=== PATIENT | male | born 1975 | race Caucasian/White ===

== ENCOUNTER 2017-04-30 03:49 | Inpatient (IN) | payer MEDICAID ==
[2017-04-30] MEDS: ASPIRIN 325 MG TAB PO (04:36)
[2017-04-30] MEDS: SOD CHLORIDE 0.9% 1,000 ML IV (04:36)
[2017-04-30] MEDS: KETOROLAC 30 MG INJ IV (04:36)
[2017-04-30 04:46] LABS: ADD MAN DIFF? NO
[2017-04-30 04:50] LABS: WHITE BLOOD COUNT 14.1 10^3/ul (4.8-10.8)
[2017-04-30 04:50] LABS: BASOPHIL # 0.1 10^3/ul (0.0-0.1); BASOPHILS % 0.7 % (0.0-2.0); EOSINOPHILS # 0.9 10^3/ul (0.0-0.5); EOSINOPHILS % 6.7 % (0.0-7.0); HEMATOCRIT 47.2 % (42.0-52.0); HEMOGLOBIN 16.2 g/dl (14.0-18.0); LYMPHOCYTES # 1.3 10^3/ul (0.8-2.9); LYMPHOCYTES % 9.5 % (15.0-51.0); MEAN CORPUSCULAR HGB CONC 34.3 g/dl (32.0-37.0); MEAN CORPUSCULAR VOLUME 93.1 fl (82.0-101.0); MEAN PLATELET VOLUME 10.2 fl (7.4-10.4); MONOCYTE # 0.8 10^3/ul (0.3-0.9); MONOCYTES % 5.3 % (0.0-11.0); NEUTROPHIL # 10.9 10^3/ul (1.6-7.5); NEUTROPHILS % 77.2 % (39.0-77.0); PLATELET COUNT 216 10^3/UL (140-415); RED BLOOD COUNT 5.07 10^6/ul (4.70-6.10); RED CELL DISTRIBUTION WIDTH 12.4 % (11.5-14.5)
[2017-04-30 05:09] LABS: ALANINE AMINOTRANSFERASE 40 IU/L (13-69); ALBUMIN 4.5 g/dl (3.3-4.9); ALBUMIN/GLOBULIN RATIO 1.36; ALKALINE PHOSPHATASE 100 IU/L (42-121); ANION GAP 18 (8-16); ASPARTATE AMINO TRANSFERASE 24 IU/L (15-46); BILIRUBIN,INDIRECT 0.4 mg/dl (0-1.1); BILIRUBIN,TOTAL 0.4 mg/dl (0.2-1.3); BLOOD UREA NITROGEN 10 mg/dl (7-20); CALCIUM 9.1 mg/dl (8.4-10.2); CARBON DIOXIDE 30 mmol/L (21-31); CHLORIDE 106 mmol/L (97-110); CREATININE 0.77 mg/dl (0.61-1.24); GLUCOSE 115 mg/dl (70-220); POTASSIUM 3.8 mmol/L (3.5-5.1); SODIUM 150 mmol/L (135-144); TOTAL PROTEIN 7.8 g/dl (6.1-8.1)
[2017-04-30] MEDS: ALBUTEROL 0.083% (NEB) 2.5 MG/3 ML AMP HHN (05:17)
[2017-04-30] MEDS: IPRATROPIUM (NEB) 0.5 MG/2.5 ML AMP HHN (05:17)
[2017-04-30 05:21] LABS: B-TYPE NATRIURETIC PEPTIDE 11 PG/ML (0-125)
[2017-04-30 05:27] LABS: TROPONIN-I < 0.012 ng/ml (0.00-0.12)
[2017-04-30] MEDS: SODIUM CHLORIDE 0.9% 1L BAG IV* (05:31)
[2017-04-30] MEDS: CEFEPIME 2GM/50 ML (PMX) 50 ML IVPB (06:09)
[2017-04-30 06:26] LABS: LACTIC ACID 2.2 mmol/L (0.5-2.0)
[2017-04-30 06:45] LABS: ADD UMIC YES; UR ASCORBIC ACID NEGATIVE (NEGATIVE); UR BILIRUBIN (Dip) NEGATIVE (NEGATIVE); UR BLOOD (Dip) 1+ mg/dL (NEGATIVE); UR CLARITY CLEAR (CLEAR); UR COLOR STRAW (YELLOW); UR GLUCOSE (Dip) NEGATIVE (NEGATIVE); UR KETONES (Dip) NEGATIVE (NEGATIVE); UR LEUKOCYTE ESTERASE (Dip) NEGATIVE Leu/ul (NEGATIVE); UR NITRITE (Dip) NEGATIVE (NEGATIVE); UR RBC 2 /HPF (0-5); UR SPECIFIC GRAVITY (Dip) 1.011 (1.003-1.030); UR TOTAL PROTEIN (Dip) NEGATIVE (NEGATIVE); UR UROBILINOGEN (Dip) NEGATIVE (NEGATIVE); UR WBC 0 /HPF (0-5)
[2017-04-30 06:57] LABS: AADO2 Arterial 176.1 mmHg (7.0-24.0); Allen Test ACCEPTAB; Arterial Base Excess -0.5 mmol/L (-3.0-3); Arterial Blood Gas Oxygen Sat 98.2 mmHG (95.0-98.0); Arterial COHb 0.1 % (0.0-3.0); Arterial Fraction of Oxyhgb 97.8 % (93.0-99.0); Arterial HCO3 26.2 mmol/L (22.0-26.0); Arterial MetHb 0.3 % (0.0-1.5); Arterial Total Hemglobin 16.5 g/dl (12.0-18.0); Arterial pCO2 50.3 mmhg (35-45); Blood Gas IEPAP 15/5; Blood Gas PS 10; MODE MASK - BIPAP; Site Left Radial
[2017-04-30] MEDS ORDERED: NACL 0.9% 3 ML SYG IV (07:30)
[2017-04-30] MEDS ORDERED: ACETAMINOPHEN 325 MG TAB PO (07:30)
[2017-04-30] MEDS: IOHEXOL 300MG/ML 150 ML BTL (07:57)
[2017-04-30] MEDS: IOHEXOL 100 ML (08:26)
[2017-04-30] MEDS: SOD CHLORIDE 0.9% 100 ML (08:26)
[2017-04-30] MEDS: IOHEXOL 350MG/ML 50 ML BTL (08:27)
[2017-04-30] MEDS: ENOXAPARIN 40 MG/0.4 ML SYG SC (08:43)
[2017-04-30] MEDS: METHYLPREDNISOLONE 125 MG INJ IV ×5 (08:43→23:19)
[2017-04-30] MEDS: AZITHROMYCIN 500MG/NS (PMX) 250 ML IVPB (08:43)
[2017-04-30] MEDS ORDERED: CEFTRIAXONE 1 GM/50 ML (PMX) 50 ML IVPB (09:00)
[2017-04-30] MEDS: morphine 2 MG INJ IV ×3 (09:05→23:19)
[2017-04-30 09:30] LABS: LACTIC ACID 1.8 mmol/L (0.5-2.0)
[2017-04-30] MEDS: CEFTRIAXONE 2 GM/NS 50 ML IVPB (10:52)
[2017-04-30 11:07] LABS: CREATINE KINASE 189 IU/L (23-200)
[2017-04-30 11:08] LABS: LACTIC ACID 1.3 mmol/L (0.5-2.0)
[2017-04-30 11:13] LABS: TROPONIN-I < 0.012 ng/ml (0.00-0.12)
[2017-04-30] MEDS: ONDANSETRON 4 MG INJ IV (18:07)
[2017-04-30 19:13] LABS: CREATINE KINASE 199 IU/L (23-200)
[2017-04-30 19:23] LABS: CK INDEX 1.6
[2017-04-30 19:25] LABS: CK-MB 3.15 ng/ml (0.0-2.4); TROPONIN-I < 0.012 ng/ml (0.00-0.12)
[2017-05-01] MEDS: LEVALBUTEROL (NEB) 0.63 MG/3 ML AMP HHN ×2 (04:18→22:07)
[2017-05-01] MEDS: IPRATROPIUM (NEB) 0.5 MG/2.5 ML AMP HHN ×2 (04:18→22:07)
[2017-05-01] MEDS: METHYLPREDNISOLONE 125 MG INJ IV ×4 (06:07→23:29)
[2017-05-01] MEDS: morphine 2 MG INJ IV (06:07)
[2017-05-01 07:45] LABS: ADD MAN DIFF? NO
[2017-05-01 08:20] LABS: BASOPHILS % 0.1 % (0.0-2.0); HEMATOCRIT 46.2 % (42.0-52.0); HEMOGLOBIN 15.7 g/dl (14.0-18.0); LYMPHOCYTES # 1.2 10^3/ul (0.8-2.9); LYMPHOCYTES % 8.1 % (15.0-51.0); MEAN CORPUSCULAR HEMOGLOBIN 32.3 pg (29.0-33.0); MEAN CORPUSCULAR VOLUME 95.1 fl (82.0-101.0); MEAN PLATELET VOLUME 10.6 fl (7.4-10.4); MONOCYTE # 0.4 10^3/ul (0.3-0.9); MONOCYTES % 2.6 % (0.0-11.0); NEUTROPHIL # 12.9 10^3/ul (1.6-7.5); NEUTROPHILS % 88.7 % (39.0-77.0); PLATELET COUNT 209 10^3/UL (140-415); RED BLOOD COUNT 4.86 10^6/ul (4.70-6.10); RED CELL DISTRIBUTION WIDTH 12.6 % (11.5-14.5)
[2017-05-01 08:20] LABS: WHITE BLOOD COUNT 14.5 10^3/ul (4.8-10.8)
[2017-05-01 08:23] LABS: ALANINE AMINOTRANSFERASE 37 IU/L (13-69); ALBUMIN 4.7 g/dl (3.3-4.9); ALBUMIN/GLOBULIN RATIO 1.46; ALKALINE PHOSPHATASE 82 IU/L (42-121); ANION GAP 19 (8-16); ASPARTATE AMINO TRANSFERASE 34 IU/L (15-46); BILIRUBIN,INDIRECT 0.3 mg/dl (0-1.1); BILIRUBIN,TOTAL 0.3 mg/dl (0.2-1.3); BLOOD UREA NITROGEN 18 mg/dl (7-20); CALCIUM 9.2 mg/dl (8.4-10.2); CARBON DIOXIDE 31 mmol/L (21-31); CHLORIDE 102 mmol/L (97-110); CREATININE 0.77 mg/dl (0.61-1.24); GLUCOSE 135 mg/dl (70-220); MAGNESIUM 2.3 mg/dl (1.7-2.5); SODIUM 147 mmol/L (135-144); TOTAL PROTEIN 7.9 g/dl (6.1-8.1)
[2017-05-01] MEDS: ENOXAPARIN 40 MG/0.4 ML SYG SC (09:37)
[2017-05-01] MEDS: CEFTRIAXONE 2 GM/NS 50 ML IVPB (11:44)
[2017-05-01] MEDS: AZITHROMYCIN 500MG/NS (PMX) 250 ML IVPB (11:45)
[2017-05-02] MEDS: METHYLPREDNISOLONE 125 MG INJ IV (05:29)
[2017-05-02 08:00] LABS: ADD MAN DIFF? NO
[2017-05-02 08:07] LABS: WHITE BLOOD COUNT 19.1 10^3/ul (4.8-10.8)
[2017-05-02 08:07] LABS: BASOPHILS % 0.1 % (0.0-2.0); HEMATOCRIT 46.1 % (42.0-52.0); HEMOGLOBIN 15.6 g/dl (14.0-18.0); LYMPHOCYTES # 1.2 10^3/ul (0.8-2.9); LYMPHOCYTES % 6.1 % (15.0-51.0); MEAN CORPUSCULAR HEMOGLOBIN 32.2 pg (29.0-33.0); MEAN CORPUSCULAR HGB CONC 33.8 g/dl (32.0-37.0); MEAN CORPUSCULAR VOLUME 95.1 fl (82.0-101.0); MEAN PLATELET VOLUME 10.6 fl (7.4-10.4); MONOCYTE # 0.5 10^3/ul (0.3-0.9); MONOCYTES % 2.7 % (0.0-11.0); NEUTROPHIL # 17.3 10^3/ul (1.6-7.5); NEUTROPHILS % 90.4 % (39.0-77.0); PLATELET COUNT 251 10^3/UL (140-415); RED BLOOD COUNT 4.85 10^6/ul (4.70-6.10); RED CELL DISTRIBUTION WIDTH 12.3 % (11.5-14.5)
[2017-05-02 08:30] LABS: ANION GAP 18 (8-16); BLOOD UREA NITROGEN 23 mg/dl (7-20); CALCIUM 9.2 mg/dl (8.4-10.2); CARBON DIOXIDE 28 mmol/L (21-31); CHLORIDE 104 mmol/L (97-110); CREATININE 0.76 mg/dl (0.61-1.24); GLUCOSE 127 mg/dl (70-220); MAGNESIUM 2.7 mg/dl (1.7-2.5); POTASSIUM 4.6 mmol/L (3.5-5.1); SODIUM 145 mmol/L (135-144)
[2017-05-02] MEDS: AZITHROMYCIN 500MG/NS (PMX) 250 ML IVPB (08:49)
[2017-05-02] MEDS: ENOXAPARIN 40 MG/0.4 ML SYG SC (08:49)
[2017-05-02] MEDS: CEFTRIAXONE 2 GM/NS 50 ML IVPB (08:49)
[2017-05-02] MEDS: predniSONE 20 MG TAB PO (12:06)
[2017-05-02] MEDS: LEVALBUTEROL (NEB) 0.63 MG/3 ML AMP HHN ×2 (13:21→22:44)
[2017-05-03 07:25] LABS: ADD MAN DIFF? NO
[2017-05-03] MEDS: LEVALBUTEROL (NEB) 0.63 MG/3 ML AMP HHN (07:28)
[2017-05-03] MEDS: IPRATROPIUM (NEB) 0.5 MG/2.5 ML AMP HHN (07:28)
[2017-05-03 07:32] LABS: BASOPHILS % 0.2 % (0.0-2.0); EOSINOPHILS # 0.1 10^3/ul (0.0-0.5); EOSINOPHILS % 0.5 % (0.0-7.0); HEMATOCRIT 43.3 % (42.0-52.0); HEMOGLOBIN 14.6 g/dl (14.0-18.0); LYMPHOCYTES # 3.1 10^3/ul (0.8-2.9); LYMPHOCYTES % 23.1 % (15.0-51.0); MEAN CORPUSCULAR HGB CONC 33.7 g/dl (32.0-37.0); MEAN PLATELET VOLUME 10.3 fl (7.4-10.4); MONOCYTE # 1.1 10^3/ul (0.3-0.9); MONOCYTES % 8.6 % (0.0-11.0); NEUTROPHIL # 8.9 10^3/ul (1.6-7.5); NEUTROPHILS % 67.1 % (39.0-77.0); PLATELET COUNT 231 10^3/UL (140-415); RED BLOOD COUNT 4.56 10^6/ul (4.70-6.10); RED CELL DISTRIBUTION WIDTH 12.7 % (11.5-14.5)
[2017-05-03 07:32] LABS: WHITE BLOOD COUNT 13.2 10^3/ul (4.8-10.8)
[2017-05-03 07:54] LABS: ANION GAP 18 (8-16); BLOOD UREA NITROGEN 20 mg/dl (7-20); CALCIUM 8.8 mg/dl (8.4-10.2); CARBON DIOXIDE 28 mmol/L (21-31); CHLORIDE 104 mmol/L (97-110); CREATININE 0.84 mg/dl (0.61-1.24); GLUCOSE 87 mg/dl (70-220); POTASSIUM 3.7 mmol/L (3.5-5.1); SODIUM 146 mmol/L (135-144)
[2017-05-03] MEDS: ENOXAPARIN 40 MG/0.4 ML SYG SC (08:34)
[2017-05-03] MEDS: CEFTRIAXONE 2 GM/NS 50 ML IVPB (08:35)
[2017-05-03] MEDS: AZITHROMYCIN 500MG/NS (PMX) 250 ML IVPB (08:35)
[2017-05-03] MEDS: predniSONE 20 MG TAB PO (08:35)
[2017-05-03] MEDS: predniSONE 10 MG TAB PO (10:44)
== END 2017-05-03 18:00 | disposition home or self-care (01) | DRG 190 ==
LOC: E/R 03:49 → MS4 06:17
PROC: 5A09357 Assistance with Respiratory Ventilation, Less than 24 Consecutive Hours, Continuous Positive Airway Pressure (ICD-10-PCS; principal; 2017-04-30)
PROC: 4A033R1 Measurement of Arterial Saturation, Peripheral, Percutaneous Approach (ICD-10-PCS; 2017-04-30)
DX: J44.1 Chronic obstructive pulmonary disease with (acute) exacerbation (principal); J96.02 Acute respiratory failure with hypercapnia; J96.01 Acute respiratory failure with hypoxia; E87.0 Hyperosmolality and hypernatremia; J20.9 Acute bronchitis, unspecified; E66.01 Morbid (severe) obesity due to excess calories; J44.0 Chronic obstructive pulmonary disease with (acute) lower respiratory infection; E86.0 Dehydration; Z87.891 Personal history of nicotine dependence; Z82.49 Family history of ischemic heart disease and other diseases of the circulatory system
CPT/HCPCS: 36415; 36600; 71045; 71275; 80048; 80053; 81001; 82550; 82553; 82803; 83605; 83735; 83880; 84484; 85025; 86635; 87040; 87400; 93005; 93306; 94640; 94644; 94660; 94664; 96365; 96366; 96368; 96372; 96375; 96376; 99291-25